=== PATIENT | female | born 1950 | race Caucasian/White ===

== ENCOUNTER 2016-06-26 15:21 | Emergency (ER) | payer OTHER, MEDICARE ==
[2016-06-26 15:53] VITALS: BP 135/82; PULSE 99; RESP 18; TEMP 98.4; O2SAT 95
--- NOTE | 2016-06-26 16:23 | UCPHY ---
H & P Time Seen by Provider: 06/26/16 15:42 Patient Type: New HPI/ROS: This patient requests a TSH checked. She explains that she is battling a long bout of blepharitis the left more than right eye being treated with antibiotics by an grain merchandiser and relates that 20 years ago she developed blepharitis while having iatrogenic hyperthyroidism from too high of a levothyroxine dose. Once they adjust her levothyroxine then her blepharitis improved at that time. For this reason she comes in to have her TSH checked today. ROS: She reports no cold intolerance. She does feel like she tends to be warmer than most people-question heat intolerance. She denies any other obvious endocrine symptoms. She does have a long history of insomnia with no recent changes. HEENT: No recent URI symptoms. She reports mild improvement in her blepharitis which is more prominent left eye. She denies any actual ocular symptoms. Pulmonary: No complaints cardiovascular: No significant heart palpitations recently. 10 point ROS is otherwise negative. Past Medical/Surgical History: Hypothyroidism Insomnia Blepharitis Smoking Status: Never smoked Physical Exam: General Appearance: Alert, no distress. Eyes: Pupils equal and round no pallor or injection. ENT, Mouth: Mucous membranes moist. There is mild erythema to the left upper eyelid. Pupils equal react to light. Extraocular motions are intact. No conjunctival injection Respiratory: There are no retractions, lungs are clear to auscultation. Cardiovascular: Regular rate and rhythm. No murmur gallop or rub Neurological: Alert with no focal deficits Skin: Warm and dry, no rashes. Musculoskeletal: Neck is supple nontender. Extremities are symmetrical, full range of motion. Psychiatric: Mood and affect normal DIFFERENTIAL DIAGNOSIS: After history and physical exam differential diagnosis was considered for rule out thyroid abnormality. Constitutional: Initial Vital Signs Temperature (C) 36.9 C 06/26/16 15:51 Heart Rate 99 06/26/16 15:51 Respiratory Rate 18 06/26/16 15:51 Blood Pressure 135/82 H 06/26/16 15:51 O2 Sat (%) 95 06/26/16 15:51 O2 Delivery Mode Room Air MDM/Departure - MDM Diagnostics: Patient's TSH is normal. I counseled regarding this. Her blepharitis is very mild and is being appropriately followed by ophthalmology. - Depart Disposition: Home, Routine, Self-Care Clinical Impression: Blepharitis of left eye Qualifiers: Blepharitis type: unspecified type Eyelid: upper Qualifier Code: (H01.004) Unspecified blepharitis left upper eyelid Condition: Good Instructions: Blepharitis (ED) Additional Instructions: Diagnosis: Blepharitis Plan: Continue current medications Follow up with her grain merchandiser Your TSH level is normal today. Referrals: NONE *PRIMARY CARE P,. [Primary Care Provider] - As per Instructions - PQRS PQRS Measurement: 134: Depression screening and followup, PRIME MD-PHQ2 (12 years and older) Over the last 2 weeks, how often have you been bothered by any of the following problems? 1. Feeling down, depressed, or hopeless? 2. Little interest or pleasure in doing things? Patient answered no to both 1 and 2 130: Documentation of medications. Reviewed all patient medications, doses, route and frequency. 226: Do you smoke? [No.] 47: 65 and older: Advanced care planning. Patient designates surrogate decision maker as Patient has advanced directive. 51: 18 years old and older with diagnosis of COPD, spirometry performance. NA 52: 18 years old and older with COPD and symptoms of COPD or FEV1<60% predicted prescribed a B Agonist. NA
== END 2016-06-26 18:05 | disposition home or self-care (01) ==
LOC: CED 15:21
DX: H01.004 Unspecified blepharitis left upper eyelid (principal); H01.003 Unspecified blepharitis right eye, unspecified eyelid
CPT/HCPCS: 84443-PO; 99203-PO; G0463-PO

== ENCOUNTER → 2017-02-16 | Outpatient (CLI) | payer OTHER, MEDICARE | LOC: FIMAGING 11:54 | PROVIDERS: ATTEND Specialist | DX: Z12.31 Encounter for screening mammogram for malignant neoplasm of breast (principal); Z80.3 Family history of malignant neoplasm of breast | CPT/HCPCS: G0202 ==

== ENCOUNTER → 2017-04-07 | Outpatient (CLI) | payer OTHER, MEDICARE | LOC: FIMAGING 12:23 → EEVIPCON 12:23 | PROVIDERS: ATTEND Specialist | DX: Z13.820 Encounter for screening for osteoporosis (principal); M85.80 Other specified disorders of bone density and structure, unspecified site; N95.8 Other specified menopausal and perimenopausal disorders ==